=== PATIENT | female | born 1970 | race Caucasian/White ===

== ENCOUNTER 2022-01-12 13:00 | Emergency (ER) | payer BC, SELFPAY ==
[2022-01-12 13:30] VITALS: BMI 25.7
[2022-01-12 14:15] VITALS: BP 118/89; PULSE 84; RESP 20; TEMP 36.8; O2SAT 100; BMI 25.7
[2022-01-12 14:30] VITALS: BP 118/89; PULSE 84; RESP 20; TEMP 36.8; O2SAT 100
--- NOTE | 2022-01-12 14:33 | HMH.EDUTC ---
[facility] Disposition Clinical Impression: COVID-19 Disposition: Home, Self-Care Condition on Discharge: Good Instructions: DI for COVID-19 (Suspected or Confirmed ), Preventing the Spread of Coronavirus Discharge Instructions Additional Instructions: Drink plenty of fluids. Take tylenol for pain or fever. Return if you begin to have difficulty breathing. Follow up with your regular doctor. GO TO THE ER FOR ANY WORSENING SYMPTOMS Quarantine until you know the results of your covid-19 test. Notify your school or workplace of your results and follow their instructions regarding return to work/school. Prescriptions: Ondansetron [Zofran 4mg ODT] 4 mg PO Q8HP PRN #12 tab PRN Reason: Nausea Transmission Status: Received by [id number] Benzonatate [Benzonatate 100mg cap] 100 mg PO TIDP PRN #30 cap PRN Reason: Cough Transmission Status: Received by [id number] Referrals: Dez Merritt MD [Primary Care Provider] - Forms: Work/School Release Time of Disposition: 14:59 Medical Decision Making - Medical Records Medical records reviewed: No: I reviewed the patient's medical records. - Ned Inquiry Pt receiving controlled substance: No Vital Signs: 01/12/22 14:15 01/12/22 14:30 Temperature 98.3 F 98.3 F Temperature Source Oral Pulse Rate 84 Pulse Rate [Right Brachial] 84 Respiratory Rate 20 20 Blood Pressure 118/89 Blood Pressure [Right Arm] 118/89 Blood Pressure Mean [Right Arm] 98 Blood Pressure Source [Right Arm] Automatic Cuff Blood Pressure Position [Right Arm] Sitting 02 Sat by Pulse Oximetry 100 Oxygen Delivery Method Room Air [facility] HPI - General Stated complaint: COVID+, cough, fatigue, body aches Time Seen by Provider: 01/12/22 14:34 Mode of Arrival: Ambulatory Source of Information: Patient Limitations: No Limitations Description of Symptoms (Recalled from Triage Doc. by RN): PATIENT C/O COUGH, BODY ACHES, DIZZINESS, LIGHT-HEADED, DECREASED APPETITE AND FATIGUE. REPORTS COVID EXPOSURE AND A POSITIVE AT HOME COVID TEST HEENT Symptoms (Recalled from RN notes): Yes Resp Symptoms (Recalled from RN notes): Yes Skin Symptoms (Recalled from RN notes): No MS Symptoms (Recalled from RN notes): No Functional Status (Recalled from RN notes): WNL - History of Present Illness Provider Complaint: She is here to have a covid-19 test after having a + rapid covid-19 test at home. - Related Data Home Medications Medication Instructions Recorded Confirmed buPROPion HCL [Wellbutrin SR 150mg 300 mg PO DAILY 07/18/18 07/18/18 Tablet] Previous Rx's Medication Instructions Recorded Benzonatate [Benzonatate 100mg 100 mg PO TIDP PRN #30 cap 01/12/22 cap] Ondansetron [Zofran 4mg ODT] 4 mg PO Q8HP PRN #12 tab 01/12/22 Allergies Allergy/AdvReac Type Severity Reaction Status Date / Time cimetidine [From Tagamet] Allergy Verified 07/18/18 18:35 Penicillins Allergy Verified 07/18/18 18:35 Sulfa (Sulfonamide Allergy Verified 07/18/18 18:35 Antibiotics) - Worker's Comp Is this a Worker's Comp case?: No [facility] History - Hepatitis A Screen Attestation statement:: This patient has been screened for Hepatitis A risk factors. I have reviewed the patient's past medical history: Yes - Social History Alcohol Intake: current Occupational Status: other ROS Obtained: Yes All systems reviewed & no additional complaints - Constitutional Constitutional: Reports as per HPI - Eyes Eyes: Denies eye discharge - ENT Ears, Nose, Mouth, and Throat: Reports as per HPI - Cardiovascular Cardiovascular: Denies chest pain - Respiratory Respiratory: Denies chest congestion, Reports cough Physical Exam - General General appearance: alert, in no apparent distress - Head Head exam: atraumatic, normocephalic, normal inspection - Eye Eye exam: Present: normal appearance, PERRL, EOMI - ENT ENT exam: Present: no
== END 2022-01-12 15:10 | disposition home or self-care (01) ==
PROVIDERS: Emergency Provider Nurse Practitioner Family; PCP Internal Medicine
DX: U07.1 COVID-19 (principal)
CPT/HCPCS: 99212; C9803; G0463; U0003; U0005

== ENCOUNTER → 2022-10-30 11:41 | Outpatient (CLI) | payer BC, SELFPAY ==
--- NOTE | 2022-10-30 11:49 | XR_ITS ---
FINAL REPORT CLINICAL HISTORY: LEFT SHOULDER PAIN .....NO ACCIDENT. WEAKNESS. LIMITED ROM. COMPARISON: None FINDINGS: Two views of the left shoulder show no evidence of acute displaced fracture or dislocation of the visualized bony architecture. The joint spaces appear normal. IMPRESSION: Unremarkable exam. Reviewed, Interpreted and Dictated by Chandra Gan MD Transcribed by Snehal Goetz Authenticated and [facility]
== END ==
PROVIDERS: PCP Internal Medicine; Visit Provider Internal Medicine
DX: M25.512 Pain in left shoulder (principal)
CPT/HCPCS: 73030

== ENCOUNTER → 2022-11-19 14:22 | Outpatient (CLI) | payer BC, SELFPAY ==
--- NOTE | 2022-11-19 14:34 | MR_ITS ---
FINAL REPORT CLINICAL HISTORY: PAIN IN LEFT SHOULDER loss mobility FINDINGS: Multiplanar MR imaging of the left shoulder was performed without contrast. There is supraspinatus tendinosis, but without evidence of tear. The other tendons of the rotator cuff are intact without evidence of rotator cuff tear. There is mild AC joint arthrosis. A small amount of fluid is present in the subacromial/subdeltoid bursa. The glenoid labrum is intact. The long head of the biceps tendon is intact. Fluid is present surrounding the long head of the biceps tendon in the bicipital groove. No significant glenohumeral joint effusion is identified. There is no evidence of fracture or dislocation. The musculature is intact. There is thickening and heterogeneity of the joint capsule at the axillary recess. In addition, there is abnormal soft tissue in the rotator interval. IMPRESSION: No evidence of rotator cuff tear or labral tear. Findings consistent with adhesive capsulitis. Fluid surrounding the long head of the biceps tendon in the bicipital groove may represent biceps tenosynovitis. Authenticated and ERN
== END ==
PROVIDERS: PCP Internal Medicine; Visit Provider Internal Medicine
DX: M25.512 Pain in left shoulder (principal)
CPT/HCPCS: 73221

== ENCOUNTER 2023-01-13 11:00 | Outpatient (RCR) | payer BC, SELFPAY | END 2023-01-13 11:05 | disposition home or self-care (01) | LOC: OT 11:00 | PROVIDERS: PCP Internal Medicine; Visit Provider Orthopaedic Surgery Sports Medicine | DX: M75.02 Adhesive capsulitis of left shoulder (principal) | CPT/HCPCS: 97010; 97014; 97035; 97110; 97140; 97165; 97530; G0283 ==

== ENCOUNTER 2023-03-04 12:48 | Emergency (ER) | payer BC, SELFPAY ==
[2023-03-04 12:48] VITALS: BP 126/76; PULSE 76; RESP 18; TEMP 36.8; O2SAT 96; BMI 25.0
--- OUTSIDE RECORDS SUMMARY | 2023-03-04 12:53 | XMS_ITS | Clinical Summary ---
Author Name Unknown Address [address] [place] [address] Phone Organization [facility] , [facility] Address [address] [place] [address] Phone Care Team Providers Care Low Pressure Boiler Operator Name Role Phone Itz Hoover MD [phone] Reason for Visit and Chief Complaint The Chief Complaint is: Left shoulder pain Problems Includes: Problems addressed during this encounter and other active Problems Current Visit Onset Date Resolved Date Provider Reyna chou Status Joint Pain, Localized in the Left Shoulder 12/09/2022 Itz Hoover MD Active Plan of Treatment Pending Tests Order Diagnosis Results Due Ordering P rovider Therapy - Physical Therapy Shoulder Pain in left shoulder 12/09/22 Itz thompson MD Future Appointments Date Time Location Provi doreen Follow Up 03/11/2023 2:30PM [facility] Itz Hoover MD Assessments Includes: Assessments from this encounter No Assessments Recorded Medical Equipment - Implanted Devices Includes: Current Devices No Medical Equipment Recorded Medications Includes: Medications discussed during this encounter and other current Medications New / Renewed during this visit Itz Hoover MD on 12/09/2022 Naproxen 500 MG Oral Tablet Provider: Itz Hoover MD 30 day supply: 60 tablet, 3 refills
--- OUTSIDE RECORDS SUMMARY | 2023-03-04 12:53 | XMS_ITS | Clinical Summary ---
Author Name Unknown Address [address] [place] [address] Phone Organization [facility] , [facility] Address [address] [place] [address] Phone Care Team Providers Care Pharmacovigilance Safety Expert Name Role Phone Itz Hoover MD [phone] Reason for Visit and Chief Complaint The Chief Complaint is: Left shoulder pain Problems Includes: Problems addressed during this encounter and other active Problems All Visits Onset Date Resolved Date Provider Condition S tatus Joint Pain, Localized in the Left Shoulder 12/09/2022 Itz Hoover MD Active Plan of Treatment Future Appointments Date Time Location Provi doreen Follow Up 03/11/2023 2:30PM [facility] Itz Hoover MD Instructions to patient Lose weight Last Documented On 3 3:22PM ; [facility], [facility] Assessments Includes: Assessments from this encounter Findings - Overweight - Last Documented On 01/14/2023 3:47PM ; [facility] Instructions Includes: Instructions from this encounter Instructions to patient Lose weight Last Documented On 3 3:22PM ; [facility], [facility] Medical Equipment - Implanted Devices Includes: Current Devices
--- OUTSIDE RECORDS SUMMARY | 2023-03-04 12:53 | XMS_ITS ---
Author Name Unknown Address [address] [place] [address] Phone Organization [facility] , [facility] Address [address] [place] [address] Phone Care Team Providers Care O And M Supervisor Name Role Phone Itz Hoover MD Unavailable [phone] Problems Includes: Active, inactive, and resolved Problems All Visits Onset Date Resolved Date Provider Condition S tatus Joint Pain, Localized in the Left Shoulder 12/09/2022 Itz Hoover MD Active Plan of Treatment Future Appointments Date Time Location Provi doreen Follow Up 03/11/2023 2:30PM [facility] Itz Hoover MD Instructions to patient Lose weight Last Documented On 3 3:22PM ; [facility], [facility] Assessments Includes: Assessments for all patient encounters Findings Encounter Date Overweight Follow Up with Itz Hoover MD 01/14/2023 Instructions Includes: Instructions for all patient encounters Instructions to patient Lose weight Last Documented On 3 3:22PM ; [facility], [facility] Medical Equipment - Implanted Devices Includes: Current and historical Devices No Medical Equipment Recorded Medications Includes: Curr
--- OUTSIDE RECORDS SUMMARY | 2023-03-04 12:53 | XMS_ITS ---
Care Plan - [facility], [facility] Created on: March 04, 2023 Cori Fallon : 1970 Sex: Female Author Name Unknown Address [address] [place] [place] [address] Phone Organization [facility] , [facility] Address [address] [place] [place] [address] Phone Care Team Providers Care Facility Maintenance Supervisor Name Role Phone Sneha SAENZ, Itz Unavailable [phone]
--- NOTE | 2023-03-04 13:08 | EXP.UTC ---
Discharge Plan Disposition Patient Disposition: Home, Self-Care Condition: Good Prescriptions Prescriptions: New azithromycin [Zithromax] 250 mg tablet 250 mg PO UD DOSE PK Qty: 6 0RF Rx Instructions: Take two (2) tablets today, then one (1) tablet days #2 thru #5 methylprednisolone 4 mg Tablets,Dose Pack 4 mg PO DIRECTED Qty: 21 0RF Robitussin Honey Max DM 5-100 mg/5 mL liquid 10 ml PO Q8H PRN (Reason: cough) Qty: 237 0RF No Action celecoxib 200 mg capsule 200 mg PO DAILY Patient Comments: TAKE 1 CAPSULE BY MOUTH TWICE DAILY clonidine HCl 0.2 mg tablet 0.2 mg PO DAILY bupropion HCl 300 mg tablet extended release 24 hr 300 mg PO DAILY lubiprostone 8 mcg capsule 8 mcg PO BID Referrals Follow up/Referrals: Dez Merritt MD [Primary Care Provider] - See instructions Activity Restrictions/Add. Instructions Additional Instructions/Restrictions: Drink plenty of fluids. Take tylenol or ibuprofen for pain or fever. Take the medications as directed. Follow up with your regular doctor. GO TO THE ER FOR ANY WORSENING SYMPTOMS Clinical Impressions Clinical Impression: Sinusitis Instructions Patient Instructions: Sinusitis, DI for Sinusitis Discharge ED Provider: Sergey Pearson [facility] General Stated complaint: congestion, cough and runny nose Mode of Arrival: Ambulatory Source of Information: Patient Limitations: No Limitations Time Seen by Provider: 03/04/23 13:08 Description of Symptoms (Recalled from Triage Doc. by RN): cough, sore throat, sinus pressure, and runny nose HEENT Symptoms (Recalled from RN notes): Yes Resp Symptoms (Recalled from RN notes): No Skin Symptoms (Recalled from RN notes): No MS Symptoms (Recalled from RN notes): No Functional Status (Recalled from RN notes): n/a History of Present Illness Provider Complaint: She states that she has has had sinus congestion, sinus pressure, cough, and chest congestion for the past 2 days. Related Data Home Medications Medication Instructions Recorded Confirmed bupropion HCl 300 mg 24 hr tablet, 300 mg PO DAILY Depression 03/04/23 03/04/23 extended release celecoxib 200 mg capsule 200 mg PO DAILY Arthritis 03/04/23 03/04/23 clonidine HCl 0.2 mg tablet 0.2 mg PO DAILY hot flashes 03/04/23 03/04/23 lubiprostone 8 mcg capsule 8 mcg PO BID Constipation 03/04/23 03/04/23 Previous Rx's Medication Instructions Recorded azithromycin 250 mg tablet 250 mg PO UD DOSE PK #6 tabs 03/04/23 (Zithromax) dextromethorphan-guaifenesin 5 10 ml PO Q8H PRN cough #237 mL 03/04/23 mg-100 mg/5 mL oral liquid (Robitussin Honey Max DM) methylprednisolone 4 mg tablets in 4 mg PO DIRECTED #21 tabs 03/04/23 a dose pack Allergies Allergy/AdvReac Type Severity Reaction Status Date / Time cimetidine [From Tagamet] Allergy Verified 03/04/23 13:01 Penicillins Allergy Verified 03/04/23 13:01 Sulfa (Sulfonamide Allergy Verified 03/04/23 13:01 Antibiotics) vancomycin Allergy Verified 03/04/23 13:44 Worker's Comp Is this a Worker's Comp case?: No [facility] Disclaimer: The information contained in this section may have been updated after the patient was seen, as this information can be updated by other users. Social History Smoking Status: Never smoker alcohol intake: current current occupational status: other Travel in the last 8 weeks: None ROS Obtained: Yes All systems reviewed & no additional complaints except as documented Constitutional Constitutional: Reports poor appetite Eyes Eyes: Reports system reviewed and no additional complaints, except as documented ENT Ears, Nose, Mouth, and Throat: Reports as per HPI Cardiovascular Cardiovascular: Reports system reviewed and no additional complaints, except as documented and Denies chest pain Respiratory Respiratory: Denies shortness of breath, Denies ch
[2023-03-04 13:52] VITALS: BP 126/76; PULSE 76; RESP 18; TEMP 36.8; O2SAT 96
== END 2023-03-04 13:52 | disposition home or self-care (01) ==
PROVIDERS: Emergency Provider Nurse Practitioner Family; PCP Internal Medicine
DX: J01.90 Acute sinusitis, unspecified (principal)
CPT/HCPCS: 87635; 96372; 99212; 99214; G0463

== ENCOUNTER 2023-05-03 11:00 | Outpatient (RCR) | payer BC, SELFPAY | END 2023-05-03 12:00 | disposition home or self-care (01) | LOC: OT 11:00 | PROVIDERS: PCP Internal Medicine; Visit Provider Orthopaedic Surgery Sports Medicine | DX: M75.02 Adhesive capsulitis of left shoulder (principal) | CPT/HCPCS: 97010; 97014; 97110; 97140; 97164; 97166; 97530; G0283 ==

== ENCOUNTER 2023-07-16 12:17 | Emergency (ER) | payer OTHER, SELFPAY ==
[2023-07-16 12:35] VITALS: BP 106/69; PULSE 79; RESP 22; TEMP 36.8; O2SAT 97; BMI 25.7
[2023-07-16 12:58] LABS: UTC Influenza A Antigen Negative (Negative); UTC Influenza B Antigen Negative (Negative); UTC Strep Screen (Rapid) Negative (Negative)
--- NOTE | 2023-07-16 13:06 | EXP.UTC ---
Discharge Plan Disposition Patient Disposition: Home, Self-Care Condition: Good Prescriptions Prescriptions: New ciclopirox 8 % solution 1 applic topical HS 28 Days Qty: 6.6 0RF Rx Instructions: apply to the affected nail q hs for 4 weeks No Action celecoxib 200 mg capsule 200 mg PO DAILY Patient Comments: TAKE 1 CAPSULE BY MOUTH TWICE DAILY clonidine HCl 0.2 mg tablet 0.2 mg PO DAILY bupropion HCl 300 mg tablet extended release 24 hr 300 mg PO DAILY lubiprostone 8 mcg capsule 8 mcg PO BID cetirizine 10 mg Tablet 10 mg PO DAILY Referrals Follow up/Referrals: Dez Merritt MD [Primary Care Provider] - See instructions Activity Restrictions/Add. Instructions Additional Instructions/Restrictions: Drink plenty of fluids. Take tylenol or ibuprofen for pain or fever. Take the medications as directed. Use the topical nail medication as directed. Follow up with your regular doctor. GO TO THE ER FOR ANY WORSENING SYMPTOMS Clinical Impressions Clinical Impression: Nail fungal infection, Acute viral syndrome Stand Alone Forms Stand Alone Forms: Work/School Release Instructions Patient Instructions: Onychomycosis, DI for Viral Syndrome Discharge ED Provider: Sergey Pearson [facility] General Stated complaint: sore throat, body aches Mode of Arrival: Ambulatory Source of Information: Patient Limitations: No Limitations Time Seen by Provider: 07/16/23 13:06 Description of Symptoms (Recalled from Triage Doc. by RN): PATIENT C/O SORE THROAT, BODY ACHES, AND EAR PAIN SINCE YESTERDAY. SHE ALSO C/O TOE FUNGUS HEENT Symptoms (Recalled from RN notes): Yes Resp Symptoms (Recalled from RN notes): No Skin Symptoms (Recalled from RN notes): No MS Symptoms (Recalled from RN notes): No Functional Status (Recalled from RN notes): WNL History of Present Illness Provider Complaint: She states that for the past 2 days she has had sore throat, chills, body aches and low grade fever. Related Data Home Medications Medication Instructions Recorded Confirmed bupropion HCl 300 mg 24 hr tablet, 300 mg PO DAILY Depression 03/04/23 07/16/23 extended release celecoxib 200 mg capsule 200 mg PO DAILY Arthritis 03/04/23 07/16/23 clonidine HCl 0.2 mg tablet 0.2 mg PO DAILY hot flashes 03/04/23 07/16/23 lubiprostone 8 mcg capsule 8 mcg PO BID Constipation 03/04/23 07/16/23 cetirizine 10 mg tablet 10 mg PO DAILY 07/16/23 07/16/23 Previous Rx's Medication Instructions Recorded ciclopirox 8 % topical solution 1 applic topical HS 4 weeks #6.6 mL 07/16/23 Allergies Allergy/AdvReac Type Severity Reaction Status Date / Time cimetidine [From Tagamet] Allergy Verified 03/04/23 13:01 Penicillins Allergy Verified 03/04/23 13:01 Sulfa (Sulfonamide Allergy Verified 03/04/23 13:01 Antibiotics) vancomycin Allergy Verified 03/04/23 13:44 Worker's Comp Is this a Worker's Comp case?: No [facility] Disclaimer: The information contained in this section may have been updated after the patient was seen, as this information can be updated by other users. Medical History (Updated 07/16/23 @ 13:26 by eSrgey Pearson APRN) Arthritis Depression IBD (inflammatory bowel disease) Seasonal allergies Social History (Updated 03/04/23 @ 18:57 by Sergey Pearson APRN) Smoking Status: Never smoker alcohol intake: current current occupational status: other Travel in the last 8 weeks: None ROS Obtained: Yes All systems reviewed & no additional complaints except as documented Constitutional Constitutional: Reports chills and Reports fever(s) Eyes Eyes: Denies eye discharge ENT Ears, Nose, Mouth, and Throat: Reports as per HPI Cardiovascular Cardiovascular: Denies chest pain Respiratory Respiratory: Denies chest congestion and Reports cough Gastrointestinal Gastrointestingal: Reports nausea; Denies abdominal pain, constipation, cramping, diarrhea or vomiting Musculoskeletal Musculoskeletal: Denies arthralgias Integumentary/Breasts Skin/Breast: Denies rash Neurologic Neurologic: Denies paresthesias Physical Exam General General appearance: alert and in no apparent distress Head Head exam: atraumatic, normocephalic and normal inspection Eye Eye exam: Present normal appearance, PERRL and EOMI ENT ENT exam: Present mucous membranes moist and normal external ear exam Expanded ENT Exam TM/Canal exam: Bilateral TM: erythema and bulging Nose exam: Absent sinus tenderness Mouth exam: Present normal external inspection; Absent drooling Teeth exam: Present normal inspection Throat exam: Present tonsillar erythema, tonsillomegaly and tonsillar exudate Neck Neck exam: Present normal inspection, full ROM and trachea midline; Absent tenderness, meningismus or lymphadenopathy Chest Chest inspection: Present normal inspection and symmetric chest wall rise; Absent tenderness Respiratory Respiratory exam: Present normal lung sounds bilaterally; Absent respiratory distress, wheezes or stridor Cardiovascular Cardiovascular exam: Present regular rate and normal rhythm; Absent systolic murmur or diastolic murmur Abdominal Exam Abdominal exam: Present soft and normal bowel sounds; Absent distention, tenderness, guarding, rebound or rigidity Extremities Exam Extremities exam: Present normal inspection and normal capillary refill; Absent calf tenderness Back Exam Back exam: Present normal inspection and full ROM; Absent tenderness, CVA tenderness (R) or CVA tenderness (L) Neurological Exam Neurological exam: Present alert, oriented X3 and CN II-XII intact Psychiatric Psychiatric exam: Present normal affect and normal mood Skin Skin exam: Present warm, dry, intact and normal color Medical Decision Making Medical Records Medical records reviewed: No I reviewed the patient's medical records. Ned Inquiry Pt receiving controlled substance: No Vital Signs: 07/16/23 12:35 Temperature 98.3 F Temperature Source Oral Pulse Rate [Right Brachial] 79 Respiratory Rate 22 Blood Pressure [Right Arm] 106/69 L Blood Pressure Mean [Right Arm] 81 Blood Pressure Source [Right Arm] Automatic Cuff Blood Pressure Position [Right Arm] Sitting 02 Sat by Pulse Oximetry 97 Oxygen Delivery Method Room Air Lab Data Lab results reviewed: Yes I reviewed the patient's lab results. Lab Results 07/16/23 12:39: Influenza Type A Ag Negative, Influenza Type B Ag Negative, Strep Scn Rapid Clinic Negative Orders (Tests/Meds): ORDERS Category Date Time Status Strep Screen Confirmation Stat Micro 07/16/23 12:39 Received
[2023-07-16 13:27] VITALS: BP 106/69; PULSE 79; RESP 22; TEMP 36.8; O2SAT 97
== END 2023-07-16 13:29 | disposition home or self-care (01) ==
PROVIDERS: Emergency Provider Nurse Practitioner Family; PCP Internal Medicine
DX: R07.0 Pain in throat (principal); R50.9 Fever, unspecified; B34.9 Viral infection, unspecified; B35.1 Tinea unguium
CPT/HCPCS: 87804; 87880; 99212; 99214; G0463

== ENCOUNTER 2023-10-15 11:00 | Outpatient (RCR) | payer OTHER, SELFPAY | END 2023-10-15 12:00 | disposition home or self-care (01) | LOC: OT 11:00 | PROVIDERS: Visit Provider Orthopaedic Surgery Sports Medicine | DX: M25.512 Pain in left shoulder (principal); M75.02 Adhesive capsulitis of left shoulder; Z98.890 Other specified postprocedural states | CPT/HCPCS: 97010; 97014; 97110; 97140; 97164; 97165; 97530; G0283 ==